=== PATIENT | male | born 1950 | race Caucasian/White ===

== ENCOUNTER 2016-10-09 06:33 | Emergency (ER) | payer OTHER ==
[2016-10-09 07:16] VITALS: BP 170/124
--- NOTE | 2016-10-09 07:27 | EDM.PDOC ---
ED HPI GENERAL MEDICAL PROBLEM - General Time Seen by Provider: 10/09/16 07:21 Source of Information: Reports: EMS notes reviewed, Family History Limitations: Reports: Altered mental status - History of Present Illness INITIAL COMMENTS - FREE TEXT/NARRATIVE: History of present illness: [66-year-old male arrived by ambulance unresponsive. He has history of a brain tumor and had recent surgery on September 12 and then developed a pulmonary embolus and was placed on Lovenox for this. He received his last dose of Lovenox last night. This morning his attempted to awaken him and found him to be unresponsive.] Review of systems: As per history of present illness and below otherwise all systems reviewed and negative. Past medical history: As per history of present illness and as reviewed below otherwise noncontributory. Surgical history: As per history of present illness and as reviewed below otherwise noncontributory. Social history: No reported history of drug or alcohol abuse. Family history: As per history of present illness and as reviewed below otherwise noncontributory. Physical exam: HEENT: Atraumatic, normocephalic, pupils reactive at 3 mm, negative for conjunctival pallor or scleral icterus, mucous membranes moist, throat clear, neck supple, nontender, trachea midline. Lungs: Clear to auscultation, breath sounds equal bilaterally, Heart: S1S2, regular, negative for clicks, rubs, or JVD. Abdomen: Soft, nondistended, Pelvis: Stable nontender. Genitourinary: Deferred. Rectal: Deferred. Extremities: Atraumatic, negative for cords or calf pain. Neurovascular unremarkable. Neuro: His pupils are 3 mm and reacting to light and he does respond to central pain stimuli localizing the pain. He is otherwise unresponsive Diagnostics: [Head CT is demonstrating an intracranial bleed with 5 mm of shift and edema, CBC complete metabolic panel INR and PTT are done please see the lab for those results.] Therapeutics: [After a stat head CT the patient was intubated by anesthesia and ambulance was expedited for transport] Impression: [Intracranial bleed] Plan: [Patient is being air lifted to essential infarct: Dr. Scanlon accepting] Definitive disposition and diagnosis as appropriate pending reevaluation and review of above. - Related Data Allergies Allergy/AdvReac Type Severity Reaction Status Date / Time hydrochlorothiazide Allergy Other Verified 10/09/16 07:18 [email or web address] Allergy Cannot Verified 10/09/16 07:18 [From Zofran (as Remember hydrochloride)] Past Medical History Cardiovascular History: Reports: Afib, Blood clots/VTE/DVT Other Cardiovascular History: recent a-fib diagnosis 1 mo ago Respiratory History: Reports: PE Neurological History: Reports: Other (see below) Other Neuro History: brain CA tumors Hematologic History: Reports: Anticoagulation therapy Oncologic (Cancer) History: Reports: Brain, Prostate, Other (see below) Other Oncologic History: prostate cancer 3 years ago - Past Surgical History Neurological Surgical History: Reports: Other (see below) Other Neurological Surgeries/Procedures: recent brain tumor removal september 12 ED ROS GENERAL - Review of Systems Review Of Systems: ROS reveals no pertinent complaints other than HPI. - Physical Exam Exam: See Below Course - Vital Signs Last Recorded V/S: Last Vital Signs Temp 36.8 C 10/09/16 06:53 Pulse 93 10/09/16 07:16 Resp BP 170/124 H 10/09/16 07:16 Pulse Ox 100 10/09/16 07:16 - Orders/Labs/Meds Orders: Active Orders 24 hr Category Date Time Status Insert Coles Catheter [Insert Urinary Catheter] [OM.PC] Care 10/09/16 07:15 Ordered Q24H Urinary Catheter Assessment [RC] ASDIRECTED Care 10/09/16 07:12 Active Chest 1V Frontal [CR] Stat Exams 10/09/16 06:59 Taken Head wo Cont [CT] Stat Exams 10/09/16 Taken INR,PT,PROTHROMBIN TIME [COAG] Routine Lab 10/09/16 06:40 Received PTT,PARTIAL THROMBOPLSTIN TIME [COAG] Routine Lab 10/09/16 06:40 Received Labs: Laboratory Tests 10/09/16 10/09/16 10/09/16 Range/Units 06:40 06:40 06:40 WBC 8.6 (4.5-11.0) K/uL RBC 4.96 (4.30-5.90) M/uL Hgb 15.8 H (12.0-15.0) g/dL Hct 45.1 (40.0-54.0) % MCV 91 (80-98) fL MCH 32 H (27-31) pg MCHC 35 (32-36) % Plt Count 182 (150-400) K/uL Add Manual Diff Yes Neutrophils % (Manual) 79 H (36-66) % Band Neutrophils % 1 L (5-11) % Lymphocytes % (Manual) 8 L (24-44) % Monocytes % (Manual) 12 H (2-6) % Puncture Site R brachial ABG pH 7.460 H (7.350-7.450) ABG pCO2 30.7 L (35.0-42.0) mmHg ABG pO2 58.6 L (75.0-100.0) mmHg ABG HCO3 21.6 L (22.0-26.0) mmol/L ABG Total CO2 18.3 L (23.0-27.0) mmol/L ABG O2 Saturation 91.6 L (95.0-98.0) % ABG O2 Content 19.9 (15.0-23.0) %vol ABG Base Excess -0.7 mm/L ABG Hemoglobin 15.8 (13.5-18.0) g/dL ABG Oxyhemoglobin 89.9 % ABG Carboxyhemoglobin 1.4 (0.0-1.6) % ABG Methemoglobin 0.5 % O2 Delivery Device Room air Sodium 135 L (140-148) mmol/L Potassium 4.5 (3.6-5.2) mmol/L Chloride 101 (100-108) mmol/L Carbon Dioxide 23 (21-32) mmol/L Anion Gap 15.5 H (5.0-14.0) mmol/L BUN 34 H (7-18) mg/dL Creatinine 0.9 (0.8-1.3) mg/dL Est Cr Clr Drug Dosing TNP Estimated GFR (MDRD) > 60 (>60) Glucose 172 H (74-106) mg/dL Calcium 7.9 L (8.5-10.1) mg/dL Total Bilirubin 0.4 (0.2-1.0) mg/dL AST 26 (15-37) U/L ALT 67 (12-78) U/L Alkaline Phosphatase 50 (46-116) U/L Total Protein 6.4 (6.4-8.2) g/dL Albumin 2.9 L (3.4-5.0) g/dL Globulin 3.5 (2.3-3.5) g/dL Albumin/Globulin Ratio 0.8 L (1.2-2.2) Departure - Departure Time of Disposition: 07:26 Disposition: DC/Tfer to Other 70 Condition: critical Clinical Impression: Intracranial bleed - Discharge Information - My Orders Last 24 Hours: My Active Orders 10/09/16 Head wo Cont [CT] Stat 10/09/16 06:40 INR,PT,PROTHROMBIN TIME [COAG] Routine PTT,PARTIAL THROMBOPLSTIN TIME [COAG] Routine 10/09/16 06:59 Chest 1V Frontal [CR] Stat 10/09/16 07:12 Urinary Catheter Assessment [RC] ASDIRECTED 10/09/16 07:15 Insert Coles Catheter [Insert Urinary Catheter] [OM.PC] Q24H - Assessment/Plan Last 24 Hours: My Active Orders 10/09/16 Head wo Cont [CT] Stat 10/09/16 06:40 INR,PT,PROTHROMBIN TIME [COAG] Routine PTT,PARTIAL THROMBOPLSTIN TIME [COAG] Routine 10/09/16 06:59 Chest 1V Frontal [CR] Stat 10/09/16 07:12 Urinary Catheter Assessment [RC] ASDIRECTED 10/09/16 07:15 Insert Coles Catheter [Insert Urinary Catheter] [OM.PC] Q24H
--- NOTE | 2016-10-09 08:54 | CR ---
Portable chest There is an endotracheal tube positioned with the tip just below the medial clavicles. Shallow lung volumes are present. There are no infiltrates or effusions. Impression: 1. Endotracheal tube 3.6 cm above the zoila. 2. Shallow lung volumes.
== END 2016-10-09 07:25 ==
LOC: JP.ED 06:33
DX: I62.9 Nontraumatic intracranial hemorrhage, unspecified (principal); I48.91 Unspecified atrial fibrillation; Z88.8 Allergy status to other drugs, medicaments and biological substances; Z85.841 Personal history of malignant neoplasm of brain
CPT/HCPCS: 36600; 51702; 70450; 71010; 71010-26; 80053; 82803; 85025; 85610; 85730; 99285-25